=== PATIENT | male | born 1930 | race Caucasian/White ===

== ENCOUNTER 2022-03-25 15:06 | Emergency (ER) | payer MEDICARE ==
[2022-03-25 15:57] LABS: HEMOGLOBIN 12.2 gm/dl (14.0-17.5); RED BLOOD COUNT 4.18 M/UL (4.20-5.50); WHITE BLOOD COUNT 6.9 K/UL (4.5-11.0)
[2022-03-25 16:19] LABS: BUN/CREATININE RATIO 26 (0-10)
== END 2022-03-25 20:10 | disposition home or self-care (01) ==
LOC: ER1 15:06
PROVIDERS: Family Medicine
DX: E11.51 Type 2 diabetes mellitus with diabetic peripheral angiopathy without gangrene (principal); I48.91 Unspecified atrial fibrillation; K21.9 Gastro-esophageal reflux disease without esophagitis; Z86.73 Personal history of transient ischemic attack (TIA), and cerebral infarction without residual deficits; Z95.0 Presence of cardiac pacemaker; Z79.899 Other long term (current) drug therapy; Z79.01 Long term (current) use of anticoagulants; Z51.81 Encounter for therapeutic drug level monitoring
CPT/HCPCS: 80053; 82550; 82553; 84484; 85025; 85610; 85730; 93005; 93925; 99284